=== PATIENT | female | born 1945 | race Caucasian/White ===

== ENCOUNTER → 2016-11-17 | Outpatient (CLI) | payer MEDICARE ==
[~2016-11-17] MED LIST: FLUT1DIS IH; LISI-334 PO
--- NOTE | 2016-11-17 12:08 | KCIC ---
PROCEDURE Two view chest radiograph. HISTORY Asthma. TECHNIQUE Two-view chest radiograph was obtained. COMPARISON None. FINDINGS The lungs are clear. There is no pleural effusion. Cardiopulmonary silhouette is within normal limits. Bony structures are intact. Anterior cervical fusion hardware is noted. IMPRESSION No acute thoracic findings. Electronically signed by: Joshua Pompa MD (Nov 17, 2016 12:06:50)
== END | disposition home or self-care (01) ==
LOC: KCIC 10:41
PROVIDERS: ATTEND Nurse Practitioner Family
DX: Z01.818 Encounter for other preprocedural examination (principal); Z86.79 Personal history of other diseases of the circulatory system
CPT/HCPCS: 71020

== ENCOUNTER → 2017-12-09 | Outpatient (CLI) | payer MEDICARE | END | disposition home or self-care (01) | LOC: KCIC MAMMO 10:24 | DX: Z12.31 Encounter for screening mammogram for malignant neoplasm of breast (principal) | CPT/HCPCS: 77063; 77067 ==

== ENCOUNTER → 2017-12-21 | Outpatient (CLI) | payer MEDICARE | END | disposition home or self-care (01) | LOC: US 09:35 | DX: N63.10 Unspecified lump in the right breast, unspecified quadrant (principal); Z80.3 Family history of malignant neoplasm of breast | CPT/HCPCS: 76641 ==

== ENCOUNTER → 2018-04-19 | Outpatient (CLI) | payer MEDICARE ==
--- NOTE | 2018-04-19 11:27 | KCIC ---
EXAMINATION: Magnetic resonance imaging (MRI) of the lumbar spine without contrast 04/19/2018 10:15 AM HISTORY: Lumbar radiculopathy. Pain extending into the left sacral and buttock lesion. TECHNIQUE: Multiplanar multi-weighted MRI of the lumbar spine was performed without intravenous contrast using the standard lumbar spine protocol. Contrast information: None administered. COMPARISON: MRI lumbar spine May 31, 2014 FINDINGS: There is levoconvex scoliosis of the lumbar spine with apex levocurvature at L4-L5. There is grade 1 retrolisthesis of L1 on L2. There is moderate to advanced disc height loss of L1-L2 with endplate remodeling and Modic type II endplate degenerative changes. Moderate anterior marginal osteophytosis is identified. The conus medullaris terminates at L1-L2. Distal spinal cord signal intensity is normal in all sequences. There is posterior and interbody fusion at L4-L5 with unilateral left-sided pedicle screws and single génesis. There is grade 1 anterolisthesis of L5 on S1. Vertebral body heights are maintained. Marrow signal intensity is otherwise normal in all sequences. Visualized portions of the sacrum appear intact. Visualized portions of the retroperitoneum appear normal. Abdominal aorta is normal in caliber as visualized. T12-L1: There is mild disc bulge. There is a right far lateral disc protrusion. There is no facet arthropathy. No neuroforaminal or spinal canal stenosis. L1-L2: There is a posterior disc osteophyte complex. There is moderate facet arthropathy. There is moderate to severe bilateral neuroforaminal stenosis. There is mild spinal canal stenosis. L2-L3: There is a circumferential disc bulge. There is moderate facet arthropathy. There is moderate to severe right and moderate left neuroforaminal stenosis. There is mild spinal canal stenosis. L3-L4: There is a circumferential disc bulge. There is moderate facet arthropathy with ligamentum flavum infolding. There is mild to moderate spinal canal stenosis. There is mild to moderate bilateral neuroforaminal stenosis. L4-L5: There is a mild disc bulge. There is severe facet arthropathy with facet fusion. There is moderate right and mild left neuroforaminal stenosis. No significant spinal canal stenosis. L5-S1: There is a circumferential disc bulge. There is severe facet arthropathy. There is severe bilateral neuroforaminal stenosis. No spinal canal stenosis. IMPRESSION: Postoperative changes from interbody and unilateral left posterior fusion at L4-L5 without significant interval change since prior examination. There is progression of grade 1 anterolisthesis of L5 on S1 with worsening degenerative changes at this level. There is worsening bilateral neuroforaminal stenosis at L5-S1. Moderate to advanced degenerative disc disease at L1-L2 appears similar. Findings at L3-L4 appears similar. Electronically signed by: Merry Hewitt MD (04/19/2018 11:23 AM) [facility]
== END | disposition home or self-care (01) ==
LOC: KCIC MRI 09:41
PROVIDERS: ATTEND Neurological Surgery
DX: M51.36 Other intervertebral disc degeneration, lumbar region (principal); M48.07 Spinal stenosis, lumbosacral region; M43.17 Spondylolisthesis, lumbosacral region; M48.061 Spinal stenosis, lumbar region without neurogenic claudication; M25.78 Osteophyte, vertebrae; Z98.890 Other specified postprocedural states; Z86.79 Personal history of other diseases of the circulatory system; Z80.3 Family history of malignant neoplasm of breast
CPT/HCPCS: 72148

== ENCOUNTER → 2018-05-13 | Outpatient (CLI) | payer MEDICARE ==
[~2018-05-13] MED LIST changes: +ASPI-612 PO; +HYDR50TA6 PO; +IOHEXOL 180 MG/ML 10 ML VIAL. ONE; +LIDOCAINE 2% PF 2ML VIAL. ONE; +LOSA100T7 PO; +MAGN500C10 PO; +MELO15TA23 PO; +MULT1TAB52 PO; +OMEG-165 PO; +POTA20TA82 PO; +PRAM0.255 PO; +RANI150T21 PO; +THEO600T PO; +methylPREDNISolone ACETATE 40 MG/ML VIAL. ONE; +methylPREDNISolone ACETATE 80 MG/ML VIAL. ONE
--- NOTE | 2018-05-14 04:06 | PAIN ---
DATE OF SERVICE: 05/13/2018 INITIAL CONSULTATION FOR PAIN CLINIC HISTORY OF PRESENT ILLNESS: This is a 73-year-old female who presents with history of pain in the low back, bilateral lower extremities, slightly worse on the left than the right but present bilaterally for about 3-4 months. No specific injury or action that she is aware of, just began worse with time, standing, walking especially and also sitting for prolonged periods and is awakening her from sleep about 4-5 times a night. The patient reports it does not affect her bowel or bladder control to significant amount but she does have some increased frequency but no incontinence. The patient reports it does affect her ability to walk significantly. She was holding on to the barrera and rails, but she is not using any assistive devices such as canes or walkers to ambulate. The patient reports the pain is across the low back into bilateral posterior gluteus, posterior thighs, posterior calves into the feet with some numbness and tingling as well, radiating pain. Describes as aching, burning across the low back, sometimes sharp, sometimes dull, worse with standing and walking. The patient did have a lumbar MRI scan, which shows postoperative changes at left L4-L5 with interbody unilateral left posterior fusion, progression of grade 1 anterolisthesis L5 on S1 with worsening degenerative change at this level with worsening bilateral neural foraminal stenosis at L5-S1 and moderate advanced degenerative disk disease at L1-L2 and L3-L4, same as her previous exam. The patient rates her disability rate from 0-10, 10 being the worst, is a 6 with family and home responsibilities and occupation, 5 with recreation, 3 with social activities, 7 with life support activities and 0 with self-care activities. The patient has not had any formal physical therapies recently but does do some stretching and strengthening exercises on her own but this has not been helping the pain significantly to reduce. The patient reports significant fatigability both lower extremities. No overt muscle weakness or loss but significant fatigability where she feels somewhat unstable in her legs at times. PAST MEDICAL HISTORY: Significant for hypertension and arthritis. PAST SURGICAL HISTORY: Previous surgeries include lumbar laminectomy in 2006 with fusion, hysterectomy, cervical laminectomy, right knee replaced in 2017, throat surgery in 2018, tonsillectomy as a child and tubal ligation many years ago. CURRENT MEDICATIONS: Include hydrochlorothiazide, losartan, Zantac, Mirapex, meloxicam, potassium chloride and daily baby aspirin, vitamins, theophylline, fish oil and magnesium. ALLERGIES: The patient is allergic to PENICILLIN and TETANUS. FAMILY HISTORY: Significant for no major medical problems or conditions she is aware of. SOCIAL HISTORY: The patient does not drink alcohol; does not smoke and does not use any illegal, illicit or recreational drugs. She is and lives locally in her own and reports she is currently retired. REVIEW OF SYSTEMS: The patient's review of systems is positive for those items mentioned in history of present illness. All systems reviewed and otherwise negative. It is complete, full and well documented on the patient's chart. PHYSICAL EXAMINATION: VITAL SIGNS: The patient's blood pressure is 194/84, pulse 77, respirations are 16, temperature is 98.2 degrees Fahrenheit, height is 66 inches and weighs 195 pounds. GENERAL: The patient is awake, alert, oriented, appropriate and very pleasant demeanor. HEENT: Head shows normocephalic and atraumatic. Extraocular movements are intact and symmetrical. Oral cavity: Mucous membranes moist and pink. Dentition is intact. NECK: Shows anterior throat supple without palpable lymphadenopathy noted. Swallow reflex symmetrical. CHEST: Shows normal on inspection. Breath sounds clear to auscultation bilaterally. HEART: Shows S1 and S2 clear. No murmurs auscultated. ABDOMEN: Soft, obese, nontender and nondistended. No palpable organomegaly is noted. No rebound or guarding demonstrated. BACK: Shows spine grossly in the midline. Normal appearing thoracic kyphosis with some slight exaggeration of the lumbar lordotic curvature, which is flattened. The patient shows a well-healed surgical scar in the midline of the lumbar spine. The patient's lumbar paraspinous musculature shows symmetrical on inspection, with palpation shows some moderate tenderness bilaterally but mostly in the middle and lower distribution of the paraspinous muscles without significant radiation. No trigger points. No radiation of pain. The patient has good rotational motion of the lumbar spine, both laterally greater than 10 degrees, right and left as well as extension greater than 10 degrees, forward flexion approximately 45 degrees without significant tenderness as well. No tenderness over the spinous processes, sacrum or sacroiliac regions. EXTREMITIES: The patient's lower extremities show deep tendon reflexes at 1+ in the patellar and tendo-calcaneus tendons. Motor exam is strong with 5/5 dorsiflexion, extension, quadriceps and hamstring flexion intact. Peripheral pulses are 1+ posterior tibia. No peripheral edema is noted. The patient's lower extremities are warm and dry to touch, equal in color and appearance. The patient's straight leg raising noted to be negative for reproduction of radicular symptoms bilaterally as is Gaenslen's and Remy's maneuvers are negative bilaterally as well. The patient is able to stand, is difficult to try to stand on her toes as she loses balance quickly, is walking with a slight shuffling gait, does not appear to favor the right or the left lower extremity significantly, not using any assistive devices to ambulate. IMPRESSION: 1. This is a 73-year-old female with about a 3-4 month history of increasing pain in the low back, bilateral lower extremities, slightly worse on the left than the right but present bilaterally in a radicular fashion. 2. Hypertension. 3. Arthritis. 4. MRI scan of lumbar spine as noted. PLAN: Options were discussed with the patient and the patient's daughter who accompanies her to visit today and we will proceed with a lumbar epidural steroid injection today. We discussed the procedure using description as well as anatomical models to describe the procedure. Risks were then discussed including, but not limited to bleeding, infection, possibility of epidural hematoma, subsequent neurological compromise, dural puncture, headaches, spinal cord and/or nerve damage, side effects of steroid medication and poor results regarding pain control. The patient understands and wished to proceed. The patient will return to the clinic in approximately 2 weeks for followup, was counseled as to return appointment, activity level and side effects to be aware of. 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 PROCEDURE: Lumbar epidural steroid injection, translaminar approach, L5-S1 level using C-arm fluoroscopic guidance under sterile prep and drape using local anesthetic. MEDICATION INJECTED: A total of 120 mg Depo-Medrol plus 10 mL of preservative-free normal saline and 2 mL of Isovue for contrast. CONDITION AT DISCHARGE: Stable. The patient tolerated the procedure well and had no complications. CAIT CASTILLO MD DR: DARIN/bulmaro JOB#: [id number] / [id number]
== END ==
LOC: PNCL 13:36
PROVIDERS: ATTEND Anesthesiology
DX: M51.16 Intervertebral disc disorders with radiculopathy, lumbar region (principal); M48.061 Spinal stenosis, lumbar region without neurogenic claudication; M96.1 Postlaminectomy syndrome, not elsewhere classified; I10 Essential (primary) hypertension; M19.90 Unspecified osteoarthritis, unspecified site; Z98.890 Other specified postprocedural states; Z90.710 Acquired absence of both cervix and uterus; Z96.651 Presence of right artificial knee joint; Z98.51 Tubal ligation status; Z79.82 Long term (current) use of aspirin; Z79.899 Other long term (current) drug therapy; Z88.0 Allergy status to penicillin; Z88.7 Allergy status to serum and vaccine
CPT/HCPCS: 62323; J1030; J1040; J2001; Q9965

== ENCOUNTER → 2018-05-27 | Outpatient (CLI) | payer MEDICARE ==
[~2018-05-27] MED LIST changes: +LIDOCAINE 1% PF 2 ML VIAL. ONE; -LIDOCAINE 2% PF 2ML VIAL. ONE
--- NOTE | 2018-05-28 02:33 | PAIN ---
DATE OF SERVICE: 05/27/2018 PROGRESS NOTE FOR PAIN CLINIC DIAGNOSES: Lumbar radiculopathy with lumbar spinal stenosis and post-lumbar laminectomy syndrome. HISTORY OF PRESENT ILLNESS: The patient is a 73-year-old female who returns for followup status post lumbar epidural steroid injection x 1. The patient reports about 20% improvement in her low back, bilateral lower extremity pain. The patient reports still significant pain across the low back and into the bilateral lower extremities, mostly in the posterior gluteus, posterior thighs and into the calves occasionally; worse with standing, walking and changing positions. The patient rates her pain as a 5 on a scale of 10 at all times, worst, average and at its least and is a 5 today. The patient reports it does not awaken her from sleep at night. She feels better with sitting or lying down. Reports the pain is tingling and tight across the back and shooting into the legs with a tingling sensation. The patient reports no new motor or sensory deficits and no new bowel or bladder incontinence or other complaints. PHYSICAL EXAMINATION: VITAL SIGNS: His blood pressure 160/78, pulse 66, respirations 18 and temperature is 98.0 degrees Fahrenheit. Height is 5 feet 3 inches and weight is 198 pounds. GENERAL: The patient is awake, alert, oriented, appropriate and very pleasant demeanor. HEENT: Head shows normocephalic and atraumatic. Extraocular movements are intact and symmetrical. Oral cavity: Mucous membranes moist and pink. Dentition is intact. NECK: Shows anterior throat supple without palpable lymphadenopathy noted. Swallow reflex is symmetrical. CHEST: Shows normal with inspection. Breath sounds are clear to auscultation bilaterally. HEART: Shows S1 and S2 clear. No murmurs auscultated. ABDOMEN: Soft, nontender and nondistended. No palpable organomegaly is noted. No rebound or guarding demonstrated. BACK: Shows spine grossly in the midline. Well healed surgical scars. No evidence of flattening of lumbar lordotic curvature. Lumbar paraspinous musculature shows symmetrical on inspection, on palpation shows some moderate tenderness but only diffusely in the lower lumbar distribution without atrophy or hypertrophy. The patient has good rotational motion with good rotation laterally as well as extension and flexion without exacerbation of pain. EXTREMITIES: Lower extremities show deep tendon reflexes 1+ in the patellar and tendo-calcaneus tendons. Motor exam is strong with 5/5 dorsiflexion, extension, quadriceps and hamstring flexion and symmetrical. Peripheral pulses are 1+ posterior tibia. No peripheral edema is noted bilaterally. Options were discussed with the patient. The patient's old chart was reviewed as well as her current medication regimen updated. Current review of systems updated today as well. We will proceed with a second in the series of lumbar epidural steroid injection today with fluoroscopic guidance. Risks were again discussed including, but not limited to bleeding, infection, possibility of epidural hematoma, subsequent neurologic compromise, dural puncture, headaches, spinal cord and/or nerve damage, side effects of steroid medication and poor results regarding pain control. The patient understands and wished to proceed. The patient will return to the clinic in approximately 2 weeks for followup, was counseled as to return appointment, activity level and side effects to be aware of. DIAGNOSES: Lumbar radiculopathy with lumbar spinal stenosis and post-lumbar laminectomy syndrome. PROCEDURE: Lumbar epidural steroid injection, translaminar approach, L5-S1 level using C-arm fluoroscopic guidance under sterile prep and drape using local anesthetic. MEDICATION INJECTED: A total of 120 mg Depo-Medrol plus 10 mL preservative-free normal saline and 2 mL of Isovue for contrast. CONDITION AT DISCHARGE: Stable. The patient tolerated the procedure well and had no complications. CAIT CASTILLO MD DR: DARIN/bulmaro JOB#: [id number] / [id number]
== END | disposition home or self-care (01) ==
LOC: PNCL 13:53
PROVIDERS: ATTEND Anesthesiology
DX: M48.061 Spinal stenosis, lumbar region without neurogenic claudication (principal); M54.16 Radiculopathy, lumbar region; M96.1 Postlaminectomy syndrome, not elsewhere classified; Z88.0 Allergy status to penicillin; Z88.7 Allergy status to serum and vaccine
CPT/HCPCS: 62323; J1030; J1040; Q9965

== ENCOUNTER → 2018-06-28 | Outpatient (CLI) | payer MEDICARE ==
[~2018-06-28] MED LIST changes: +DOCU-109 PO; -IOHEXOL 180 MG/ML 10 ML VIAL. ONE; -LIDOCAINE 1% PF 2 ML VIAL. ONE; +METH750T2 PO; +OXYC1TAB7 PO; +POTA10TA12 PO; -methylPREDNISolone ACETATE 40 MG/ML VIAL. ONE; -methylPREDNISolone ACETATE 80 MG/ML VIAL. ONE
[2018-06-28 14:19] LABS: BASO # 0.1 x10^3/uL (0.0-0.2); BASO % 1 % (0-3); EOS # 0.2 x10^3/uL (0.0-0.7); EOS % 2 % (0-3); HEMATOCRIT 39.2 % (36.0-47.0); HEMOGLOBIN 13.2 g/dL (12.0-15.5); LYMPH # 2.9 x10^3/uL (1.0-4.8); LYMPH % 24 % (24-48); MEAN CORPUSCULAR HEMOGLOBIN 29 pg (25-35); MEAN CORPUSCULAR HGB CONC 34 g/dL (31-37); MEAN CORPUSCULAR VOLUME 85 fL (79-100); MONO # 0.8 x10^3/uL (0.0-1.1); MONO % 7 % (0-9); NEUT # 8.1 x10^3uL (1.8-7.7); NEUT % 67 % (31-73); PLATELET COUNT 410 x10^3/uL (140-400); RED BLOOD COUNT 4.61 x10^6/uL (3.50-5.40); RED CELL DISTRIBUTION WIDTH 14.3 % (11.5-14.5); WHITE BLOOD COUNT 12.1 x10^3/uL (4.0-11.0)
[2018-06-28 14:32] LABS: PROTHROMBIN TIME PATIENT 12.2 SEC (11.7-14.0)
[2018-06-28 14:36] LABS: ALBUMIN 3.7 g/dL (3.4-5.0); ALBUMIN/GLOBULIN RATIO 0.8 (1.0-1.7); CALCIUM 9.9 mg/dL (8.5-10.1); GFR 54.5; POTASSIUM 3.6 mmol/L (3.5-5.1); TOTAL BILIRUBIN 0.3 mg/dL (0.2-1.0); TOTAL PROTEIN 8.4 g/dL (6.4-8.2)
== END | disposition home or self-care (01) ==
LOC: SURGPAT 13:09
PROVIDERS: ATTEND Neurological Surgery
DX: Z01.818 Encounter for other preprocedural examination (principal); M48.061 Spinal stenosis, lumbar region without neurogenic claudication; M54.16 Radiculopathy, lumbar region; M43.16 Spondylolisthesis, lumbar region
CPT/HCPCS: 36415; 80053; 85025; 85610; 85730; 87641

== ENCOUNTER → 2018-10-12 | Outpatient (CLI) | payer MEDICARE ==
[2018-07-06 11:36] VITALS: BP 107/49
[~2018-10-12] MED LIST changes: +LOSA100T14 PO; -LOSA100T7 PO; +RANI-376 PO; -RANI150T21 PO
--- NOTE | 2018-10-12 17:29 | KCIC ---
EXAM: AP, lateral and LS spot views of the lumbar spine DATE: 10/12/2018 12:00 AM INDICATION: Posterior spinal fusion COMPARISON: 10/12/2018 FINDINGS: Posterior spinal fusion at L5-S1 is seen. Grade 1 anterolisthesis of L5 on S1. In addition there is interbody fusion at L4-5. Leftward curvature of the lumbar spine apex L3-4. Moderate disc height loss T12-L1 and L1-L2. Small anterior endplate osteophytes are seen. Moderate facet degenerative changes at L4-5 and below. Decreased bone mineral density. IMPRESSION: 1. L5-S1 posterior spinal fusion, in good alignment without definite hardware complication. Grade 1 anterolisthesis L5 on S1. 2. L4-5 interbody fusion also in good alignment without definite hardware complication. 3. Multilevel degenerative changes as above. 4. No definite fracture is identified Electronically signed by: Jama Batista MD (10/12/2018 5:26 PM) [facility]
== END | disposition home or self-care (01) ==
LOC: KCIC 12:34
PROVIDERS: ATTEND Neurological Surgery
DX: Z47.89 Encounter for other orthopedic aftercare (principal); M43.17 Spondylolisthesis, lumbosacral region; M47.896 Other spondylosis, lumbar region; M25.78 Osteophyte, vertebrae; R29.890 Loss of height
CPT/HCPCS: 72100

== ENCOUNTER → 2018-11-04 | Outpatient (CLI) | payer MEDICARE ==
[2018-07-06 11:36] VITALS: BP 107/49
--- NOTE | 2018-11-04 15:10 | KCIC ---
Bilateral diagnostic digital mammograms with 3-D tomosynthesis: Reason for examination: Follow-up nodules. Comparison is made to previous studies dated 12/09/2017 and 10/04/2015. Bilateral mammograms in CC and oblique projections were obtained with 2-D imaging and 3-D tomosynthesis imaging on a Siemens Inspiration unit and reviewed on the workstation. Interpretation was made with the benefit of CAD. The skin and nipples show no abnormalities. No abnormal axillary lymph nodes are seen. The breast parenchyma shows scattered fatty and fibroglandular density. (Breast density: Category B.) There continues to be a nodular density at the 9:00 B position of the right breast which is unchanged. The nodular density in the 3:00 position of the left breast appears to have resolved. There are no new dominant masses, suspicious calcifications or architectural distortion. Impression: No definite change in the nodule at the 9:00 B position of the right breast. Interval improvement the nodule seen at the 3:00 position of the left breast. Ultrasound to follow. BI-RAD Category 0: Incomplete. Needs additional imaging evaluation. Bilateral breast ultrasound: Comparison is made to previous study dated 12/21/2017. Ultrasound examination was performed bilaterally in the areas of mammographic concern and at the axilla. In the right breast at the 9:00 position 3 cm from the nipple, there continues to be a small hypoechoic lesion measuring approximately 5.; mm in greatest dimension which is stable. Appearance is consistent with a small fibroadenoma. No other cystic or solid lesions are seen. No abnormal appearing lymph nodes are seen in the right axilla. In the 3:00 retroareolar position of the left breast, there is some ductal ectasia. The cystic appearing lesion previously seen in the 2:00 position has resolved. No new cystic or solid lesions are seen. No abnormal appearing lymph nodes are seen in the left axilla IMPRESSION: No change in the 5.6 mm hypoechoic lesion in the 9:00 B position of the right breast. No new suspicious lesion seen. Recommend 6 month sonographic follow-up of the right breast. BI-RADS Category 3: Probably Benign. "Our facility is accredited by the [employer] Mammography Program." This patient's information has been entered into a reminder system for the patient to be notified with the results of her examination and a target date for the next mammogram. Electronically signed by: Manju Maki MD (11/04/2018 3:07 PM) [id number]
== END | disposition home or self-care (01) ==
LOC: KCIC MAMMO 12:32
PROVIDERS: ATTEND Internal Medicine
DX: N63.23 Unspecified lump in the left breast, lower outer quadrant (principal); N63.11 Unspecified lump in the right breast, upper outer quadrant; N60.42 Mammary duct ectasia of left breast
CPT/HCPCS: 76641; 77066; G0279; 77062

== ENCOUNTER → 2019-03-24 | Outpatient (CLI) | payer MEDICARE ==
[2018-07-06 11:36] VITALS: BP 107/49
[~2019-03-24] MED LIST changes: +ALBUTEROL SULFATE 2.5 MG/3 ML NEBU. NEB ONE
--- NOTE | 2019-03-29 13:18 | RESP ---
DATE OF SERVICE: 03/24/2019 NAME OF STUDY: PFT. The patient's FVC was 1.89, which is 68% predicted, FEV1 1.12, which is 54% predicted. FEV1/FVC ratio was reduced. There was no significant change post-bronchodilators. Lung volume showed a total lung capacity of 209% predicted, residual volume 408% predicted. Diffusion capacity 134% predicted. IMPRESSION: 1. [id number] obstructive airway disease. 2. No response to bronchodilators. 3. Lung volumes consistent with air trapping and hyperinflation. 4. Increased diffusion capacity. LILLIAN BAINS MD DR: LO/bulmaro JOB#: [id number] / [id number] MARIAN Beltran MD
== END | disposition home or self-care (01) ==
LOC: PF 10:48
PROVIDERS: ATTEND Internal Medicine
DX: J44.9 Chronic obstructive pulmonary disease, unspecified (principal)
CPT/HCPCS: 94060; 94640; 94729; J7613

== ENCOUNTER → 2019-07-15 | Outpatient (CLI) | payer MEDICARE ==
[2018-07-06 11:36] VITALS: BP 107/49
[~2019-07-15] MED LIST changes: -ALBUTEROL SULFATE 2.5 MG/3 ML NEBU. NEB ONE; +POTA20TA4 PO; -POTA20TA82 PO
--- NOTE | 2019-07-16 10:23 | KCIC ---
Right breast ultrasound: Reason for examination: Follow-up nodules. Comparison is made to previous study dated 11/04/2018. Right breast ultrasound examination was performed including the right axilla. There continues to be a 6 mm hypoechoic nodule at the 9:00 position 3 cm from the nipple which shows no significant change. There are no new cystic or solid lesion seen. No abnormal appearing lymph nodes are seen in the axilla. IMPRESSION: No change in the right breast nodule at the 9:00 position. Recommend reevaluation in 6 months which can be performed at the time of bilateral mammograms. BI-RADS Category 3: Probably Benign. "Our facility is accredited by the [employer] Mammography Program." This patient's information has been entered into a reminder system for the patient to be notified with the results of her examination and a target date for the next mammogram. Electronically signed by: Manju Maki MD (07/16/2019 10:20 AM) [facility]
== END | disposition home or self-care (01) ==
LOC: KCIC US 12:54
PROVIDERS: ATTEND Nurse Practitioner Family
DX: N63.11 Unspecified lump in the right breast, upper outer quadrant (principal)
CPT/HCPCS: 76641

== ENCOUNTER → 2019-08-30 | Outpatient (CLI) | payer MEDICARE ==
[2018-07-06 11:36] VITALS: BP 107/49
--- NOTE | 2019-08-30 14:06 | KCIC ---
MRI of the cervical spine without contrast 08/30/2019 CLINICAL HISTORY: Neck pain with progressive left arm numbness. History of cervical fusion. TECHNIQUE: Unenhanced T1-weighted, T2-weighted and inversion recovery sagittal and gradient echo and T2-weighted axial images of the cervical spine were obtained. FINDINGS: Comparison study is dated 09/01/2007. Very mild lateral curvature of the cervical spine is seen convex to the right. There is straightening of the normal cervical lordosis. The patient is post anterior discectomy and fusion using an anterior plate, bone screws and bone graft material at C4-5 and C5-6. Degenerative signal changes and loss of height are seen involving the remaining discs of the cervical spine. Degenerative signal changes are seen within the marrow surrounding these discs. No area of abnormal signal intensity is seen involving the cervical spinal cord. At the C2-3 disc space there is a mild generalized disc bulge. Degenerative changes are seen involving the uncovertebral and facet joints bilaterally. These findings when combined do not result in significant central spinal canal or neural foraminal stenosis. At the C3-4 disc space there is a moderate generalized disc bulge. Degenerative changes are seen involving the uncovertebral and facet joints bilaterally. These findings result in moderate central spinal canal stenosis with mild cord impingement. This is new since the previous study. Mild to moderate bilateral neural foraminal stenosis is seen. At the C4-5 disc space degenerative changes are seen involving the uncovertebral and facet joints bilaterally. The central spinal canal stenosis and cord impingement seen on the previous study has resolved with the discectomy and fusion. No neural foraminal stenosis is seen. At the C5-6 level degenerative changes are seen involving the uncovertebral and facet joints, left greater than right. These findings do not result in significant central spinal canal stenosis. Mild to moderate left neural foraminal stenosis is seen. The right neural foramen is patent. At the C6-7 disc space there is a mild generalized disc bulge. This is eccentric to the left. Degenerative changes are seen involving the uncovertebral and facet joints, left greater than right. These findings do not result in significant central spinal canal stenosis. Mild to moderate left neural foraminal stenosis is seen. The right neural foramen is patent. At the C7-T1 disc space there is a minimal generalized disc bulge. Degenerative changes are seen involving the facet joints bilaterally. These findings do not result in central spinal canal or neural foraminal stenosis. IMPRESSION: 1. Post anterior discectomy and fusion at C4-5 and C5-6. 2. Degenerative changes are seen throughout the cervical spine. These findings results in moderate central spinal canal stenosis with mild cord impingement at C3-4. Mild to moderate bilateral neural foraminal stenosis is seen at C3-4. Mild to moderate left neural foraminal stenosis is seen at C5-6 and C6-7. Electronically signed by: Elias Man MD (08/30/2019 2:03 PM) [facility]
== END | disposition home or self-care (01) ==
LOC: KCIC MRI 12:03
PROVIDERS: ATTEND Internal Medicine
DX: M50.23 Other cervical disc displacement, cervicothoracic region (principal); M48.02 Spinal stenosis, cervical region
CPT/HCPCS: 72141

== ENCOUNTER 2020-12-21 10:11 | Emergency (ER) | payer MEDICARE ==
[~2020-12-21] VITALS: Ht 158.8 cm; Wt 90.0 kg
[~2020-12-21 10:11] MED LIST changes: -ASPI-612 PO; +ASPI-886 PO; -HYDR50TA6 PO; +HYDR50TA9 PO; -LISI-334 PO; +LISI20TA18 PO; +METH-562 PO; -METH750T2 PO; +MULT-445 PO; -MULT1TAB52 PO; -THEO600T PO; +THEO600T4 PO
--- NOTE | 2020-12-21 11:56 | RAD ---
INDICATION: Reason: pain in leg eval for DVT / Spl. Instructions: / History: COMPARISON: None. TECHNIQUE: Grayscale, color and doppler ultrasound images were obtained of the left lower extremity v enous vasculature. LEFT: No thrombus identified in the common femoral vein, femoral vein, popliteal vein or visualized calf ve ins. IMPRESSION: * No thrombus identified in deep venous system of the left lower extremity. Electronically signed by: Jeffy Carrion MD (12/21/2020 11:53 AM) [id number]
--- NOTE | 2020-12-21 12:11 | PHYS DOC ---
Past Medical History Past Medical History: CHF, DVT, GERD, Hypertension Additional Past Medical Histor: lymphedema; back pain; chronic pain; femoral stents Past Surgical History: Tonsillectomy, Other Additional Past Surgical Histo: back; right knee; neck Smoking Status: Never Smoker Alcohol Use: Rarely General Adult EDM: Chief Complaint: LOWER EXT PAIN HPI: HPI: Patient is a 75 year old [f__sex] who presents with [] Review of Systems: Review of Systems: Constitutional: Denies fever or chills Eyes: Denies redness or eye pain HENT: Denies nasal congestion or sore throat Respiratory: Denies cough or shortness of breath Cardiovascular: Denies chest pain or palpitations GI: Denies abdominal pain, nausea, or vomiting : Denies dysuria or hematuria Musculoskeletal: Denies back pain or joint pain Integument: Denies rash or skin lesions Neurologic: Denies headache, focal weakness or sensory changes Complete systems were reviewed and found to be within normal limits, except as documented in this note. Heart Score: C/O Chest Pain: N/A Allergies: Allergies: Allergies Coded Allergies Type Severity Reaction Last Updated Verified Penicillins Allergy Intermediate 07/05/18 Yes Tetanus Vaccines and Toxoid Allergy Intermediate 07/05/18 Yes Physical Exam: PE: Constitutional: Well developed, well nourished, no acute distress, non-toxic appearance HENT: Normocephalic, atraumatic Eyes: PERRL, EOMI, conjunctiva normal, no discharge Neck: Normal range of motion, no tenderness, supple Lungs & Thorax: No respiratory distress, equal chest rise and fall Abdomen: Soft, no tenderness Skin: Warm, dry, no erythema, no rash Back: No tenderness, no CVA tenderness Extremities: No tenderness, ROM intact, no edema Neurologic: Alert and oriented X 3, normal motor function, normal sensory function, no focal deficits noted Psychologic: Affect normal, judgment normal Current Patient Data: Vital Signs: Vital Signs Date Time Temp Pulse Resp B/P (MAP) Pulse Ox O2 Delivery O2 Flow Rate FiO2 12/21/20 10:30 98.0 82 16 200/84 (122) 99 Room Air 98.0 EKG: EKG: [] Radiology/Procedures: Radiology/Procedures: PROCEDURE: VENOUS LOWER EXTREMITY LEFT INDICATION: Reason: pain in leg eval for DVT / Spl. Instructions: / History: COMPARISON: None. TECHNIQUE: Grayscale, color and doppler ultrasound images were obtained of the left lower extremity venous vasculature. LEFT: No thrombus identified in the common femoral vein, femoral vein, popliteal vein or visualized calf veins. IMPRESSION: * No thrombus identified in deep venous system of the left lower extremity. Electronically signed by: Jeffy Carrion MD (12/21/2020 11:53 AM) DESKTOP- [id number] Course & Med Decision Making: Course & Med Decision Making Pertinent Imaging studies reviewed. (See chart for details) Dr. Frazier (orthopedics) presented to the ER and evaluated patient with recommendation to follow with ankle and software applications specialist. Dr. Frazier also in agreement with walking boot and use of walker. Patient stable for discharge with outpatient follow-up with PCP/orthopedics. Discussed findings and plan with patient and family, who acknowledge understanding and agreement. Dragon Disclaimer: Dragon Disclaimer: This electronic medical record was generated, in whole or in part, using a voice recognition dictation system. Splinting Splinting : Location: Left ankle Pre-Made Type: Walking boot Pre-Proc Neuro Vasc Exam: normal Post-Proc Neuro Vasc Exam: normal, unchanged from pre-exam Departure Departure Impression: Primary Impression: Ankle pain Qualified Codes: M25.572 - Pain in left ankle and joints of left foot Additional Impression: Arthritis Disposition: 01 HOME / SELF CARE / HOMELESS Condition: STABLE Referrals: MARIAN LAUGHLIN MD (PCP) CIARRA FRAZIER MD Patient Instructions: Ankle Pain, Arthritis, Nonspecific, [id number] Additional Instructions: Ice area 20 minutes on then leave off next 20 minutes. Wear walking boot for protection of joint. Use walker with ambulation. ARNIE POND DO December 21, 2020 12:11
--- NOTE | 2020-12-21 12:29 | RAD ---
THREE-VIEW LEFT ANKLE STUDY Clinical indications: Left ankle pain and swelling FINDINGS: Lateral soft tissue swelling is seen. No acute fracture or dislocation or lytic process is seen. Accessory ossification centers of the medial malleolus are seen. There is irregularity of the l ateral dome of the talus. This could be due to an osteochondral lesion. There is mild degenerative sp urring of the tibiotalar joint compartment. IMPRESSION: No acute fracture. Lateral soft tissue swelling. 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 There is also mild subchondral lucency of the medial dome of the talus. Another osteoc hondral lesion may be present here as well. This may be further evaluated with MRI imaging if clinica lly needed. THREE-VIEW LEFT FOOT STUDY Clinical indications: Left foot pain and swelling. FINDINGS: No acute fracture or dislocation or lytic process is seen. Moderate-sized plantar spur of t he calcaneus is seen. Accessory ossification center of the dorsal distal navicular bone is seen. Ther e is moderate dorsal degenerative spurring of the first tarsal metatarsal joint. No erosive arthropat hy is seen. IMPRESSION: No acute fracture. Electronically signed by: Long Alford MD (12/21/2020 12:27 PM) [id number]
[2020-12-21 13:30] VITALS: BP 132/89
== END 2020-12-21 13:40 | disposition home or self-care (01) ==
LOC: ER 10:11
DX: M25.572 Pain in left ankle and joints of left foot (principal); M19.072 Primary osteoarthritis, left ankle and foot; I11.0 Hypertensive heart disease with heart failure; I50.9 Heart failure, unspecified; K21.9 Gastro-esophageal reflux disease without esophagitis; G89.29 Other chronic pain; Z86.718 Personal history of other venous thrombosis and embolism; Z95.5 Presence of coronary angioplasty implant and graft; Z88.0 Allergy status to penicillin; Z88.7 Allergy status to serum and vaccine
CPT/HCPCS: 73610; 73630; 93971; 99284-25

== ENCOUNTER → 2021-02-06 | Outpatient (CLI) | payer MEDICARE ==
--- NOTE | 2021-02-06 11:38 | KCIC ---
EXAM: Pelvis and right hip, 3 views; lumbar spine, 3 views. HISTORY: Pain. COMPARISON: None. FINDINGS: Pelvis and right hip: A frontal view of the pelvis and frontal and frog-leg views of the right hip ar e obtained. There is no fracture, dislocation or subluxation. There are bilateral common iliac stents . There is instrumented fusion at the lumbosacral junction. There is a bump at the right femoral head -neck junction likely due to chronic hip impingement. Lumbar spine: 3 views of the lumbar spine are obtained. There is instrumented posterior spinal fusion and laminectomy decompression at L5-S1. There is a disc space fusion device at L4-L5. There is grade 1 anterolisthesis of L5 on S1, measuring 5 mm. There is grade 1 anterolisthesis of L4 and L5, measur ing 2 mm. There is 3 mm retrolisthesis of L1 on L2 and L2 on L3. There is degenerative endplate remod eling with disc space narrowing and osteophytosis primarily at L1-L2 and L5-S1. There is multilevel f acet arthropathy. There are common iliac artery stents. There is mild scoliosis. IMPRESSION: 1. Multilevel degenerative change throughout the lumbar spine, primarily at L1-L2 and the lumbosacral junction. 2. Instrumented posterior spinal fusion at L5-S1 and disc space fusion device placement at L4-L5. 3. Lumbar scoliosis and multilevel listhesis. 4. Findings suggesting a component of chronic right hip impingement. There is no acute osseous findin g. Electronically signed by: Berna Rucker MD (02/06/2021 11:36 AM) [id number]
== END ==
LOC: KCIC 11:01
PROVIDERS: ATTEND Nurse Practitioner Family
DX: M47.817 Spondylosis without myelopathy or radiculopathy, lumbosacral region (principal); M43.17 Spondylolisthesis, lumbosacral region; M48.07 Spinal stenosis, lumbosacral region; M25.78 Osteophyte, vertebrae; M41.86 Other forms of scoliosis, lumbar region; M25.551 Pain in right hip
CPT/HCPCS: 72100; 73502

== ENCOUNTER → 2021-02-21 | Outpatient (CLI) | payer MEDICARE ==
--- NOTE | 2021-02-21 16:22 | KCIC ---
Study: MRI of the right hip without contrast INDICATION: Right hip pain. Recent fall. COMPARISON: Right hip radiographs 02/06/2021 TECHNIQUE: Multiplanar MR imaging of the right hip performed without the use of intravenous or intra- articular contrast. FINDINGS: Bones/hip: No acute fracture seen throughout the partially imaged pelvis. No stress reaction or avasc ular necrosis at either hip. Marrow signal is heterogeneous but without aggressive features. Labrum/cartilage: Not unexpected for patient age is degenerative heterogeneity of the labrum best afshan reciated anterior/superior. No well delineated full-thickness chondral defect. Ligamentum teres: Heterogeneous but appears to be intact. Greater trochanteric bursa: Unremarkable bursa on the right. Trace fluid and some edema-like signal a long the bursa on the left but not to the extent typical of bursitis. Musculotendinous: No acute tendon tear no advanced tendinosis. No localized muscular edema around the right hip. Miscellaneous: Unremarkable sciatic nerve bundle on the right. Within normal limits ischiofemoral spa ce. IMPRESSION: 1. No acute osseous or soft tissue abnormality at the right hip in the setting of a recent fall. 2. Degenerative changes at the right hip are mild and not beyond what would be expected given patien t age. Electronically signed by: MELO MAJANO MD (02/21/2021 4:19 PM) [id number]
--- NOTE | 2021-02-21 17:11 | KCIC ---
EXAM: Lumbar spine MRI without contrast. HISTORY: Lower back pain. Fall. TECHNIQUE: Multiplanar, multisequence magnetic resonance imaging of the lumbar spine was performed wi thout contrast. COMPARISON: CT dated 07/05/2018. MRI dated 04/19/2018. FINDINGS: There is mild lumbar levoscoliosis and hyperlordosis. There is 4 mm retrolisthesis of L1 on L2 and L2 on L3. There is 4 mm grade 1 anterolisthesis of L4 and L5 and L5 and S1. There is instrume nted posterior spinal fusion and laminotomy decompression at L5-S1. There is a disc space fusion peyton ce and laminotomy decompression at L4-L5. The conus terminates at L2. There is multilevel endplate remodeling with disc space narrowing, osteophytosis and Schmorl's node f ormation. There is no acute or subacute fracture. There is no suspicious osseous lesion. There is a 1 .3 cm left adrenal nodule. At L1-L2, there is a diffuse disc bulge and endplate osteophytosis. There is moderate bilateral facet arthropathy. There is hypertrophy of the ligamentum flavum. There is retrolisthesis. There is modera te right and severe left foraminal stenosis. There is mild central canal stenosis. At L2-L3, there is a broad-based right paracentral to lateral recess disc protrusion with large extru margot extending 1.6 cm superior to the disc space and nearly abutting the adjacent L1-L2 disc space. T his is superimposed on a disc bulge and endplate osteophytosis. There is severe bilateral facet arthr opathy. There is prominent dorsal epidural fat. There is hypertrophy of the ligamentum flavum. There is retrolisthesis. There is severe right and moderate left foraminal stenosis. There is severe centra l canal stenosis. At L3-L4, there is a disc bulge and endplate osteophytosis. There is moderate bilateral facet arthrop athy. There is hypertrophy of the ligamentum flavum. There is mild left foraminal stenosis. There is moderate central canal stenosis. At L4-L5, there is a disc space fusion device. There is moderate facet arthropathy. There is laminoto my decompression. There is grade 1 anterolisthesis. There is no stenosis. At L5-S1, there is instrumented posterior spinal fusion. There is a diffuse disc bulge and endplate o steophytosis. There is severe bilateral facet arthropathy. There is grade 1 anterolisthesis. There is moderate right and severe left foraminal stenosis. 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 IMPRESSION: 1. Multilevel degenerative change throughout the lumbar spine, described in detail above. This is ass ociated with moderate right and severe left foraminal and mild central canal stenosis at L1-L2, sever e right and moderate left foraminal and severe central canal stenosis at L2-L3, mild left foraminal a nd moderate central canal stenosis at L3-L4, and moderate right and severe left foraminal stenosis at L5-S1. These findings have increased at L2-L3 compared to the prior study, likely a new large superi or disc extrusion at this level. The degenerative changes are stable to minimally increased at the re mainder the lumbar levels compared to the prior MRI. 2. Instrumented posterior spinal fusion at L5-S1, disc space fusion device placement at L4-5 and lami nectomy decompression at L4-L5 and L5-S1. 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 This is n ew compared to the prior MRI. There has been interval removal of transpedicular screws at L4 and plac ement of screws at S1. 3. Multilevel listhesis and lumbar scoliosis. Electronically signed by: Berna Rucker MD (02/21/2021 5:09 PM) [id number]
== END ==
LOC: KCIC MRI 12:19
PROVIDERS: ATTEND Nurse Practitioner Family
DX: M47.817 Spondylosis without myelopathy or radiculopathy, lumbosacral region (principal); M48.07 Spinal stenosis, lumbosacral region; M43.17 Spondylolisthesis, lumbosacral region; M16.11 Unilateral primary osteoarthritis, right hip; M41.86 Other forms of scoliosis, lumbar region; M51.46 Schmorl's nodes, lumbar region
CPT/HCPCS: 72148; 73721

== ENCOUNTER 2021-03-05 06:11 | Emergency (ER) | payer MEDICARE | END 2021-03-05 08:24 | disposition left against medical advice (07) | LOC: ER 06:11 | DX: M51.26 Other intervertebral disc displacement, lumbar region (principal); Z53.21 Procedure and treatment not carried out due to patient leaving prior to being seen by health care provider ==

== ENCOUNTER → 2021-03-18 | Outpatient (CLI) | payer MEDICARE ==
[~2021-03-18] MED LIST changes: +ALBU2.5V8 IH; +AMLO-187 PO; +CALC-71 PO; +CHOL5000 PO; +EZET10TA20 PO; +FLUT1DIS3 IH; +HYDR-2765 PO; +LOSA1TAB22 PO; +MONT10TA49 PO; +RIVA10TA PO
[2021-03-18 14:15] LABS: BASO # 0.1 x10^3/uL (0.0-0.2); BASO % 1 % (0-3); EOS % 0 % (0-3); HEMATOCRIT 31.2 % (36.0-47.0); HEMOGLOBIN 10.7 g/dL (12.0-15.5); LYMPH # 0.7 x10^3/uL (1.0-4.8); LYMPH % 8 % (24-48); MEAN CORPUSCULAR HEMOGLOBIN 28 pg (25-35); MEAN CORPUSCULAR HGB CONC 34 g/dL (31-37); MEAN CORPUSCULAR VOLUME 81 fL (79-100); MONO # 0.5 x10^3/uL (0.0-1.1); MONO % 5 % (0-9); NEUT # 8.4 x10^3/uL (1.8-7.7); NEUT % 86 % (31-73); PLATELET COUNT 299 x10^3/uL (140-400); RED BLOOD COUNT 3.86 x10^6/uL (3.50-5.40); RED CELL DISTRIBUTION WIDTH 15.2 % (11.5-14.5); WHITE BLOOD COUNT 9.7 x10^3/uL (4.0-11.0)
[2021-03-18 14:46] LABS: % BANDS 2 % (0-9); % BASOS 1 % (0-3); % EOS 1 % (0-5); % LYMPHS 10 % (24-48); % MONOS 3 % (0-10); % SEGS 83 % (35-66); PLT ESTIMATE ADEQUATE (ADEQUATE)
[2021-03-18 15:01] LABS: ALBUMIN 3.5 g/dL (3.4-5.0); ALBUMIN/GLOBULIN RATIO 0.9 (1.0-1.7); CALCIUM 10.1 mg/dL (8.5-10.1); CREATININE 0.9 mg/dL (0.6-1.0); POTASSIUM 3.3 mmol/L (3.5-5.1); TOTAL BILIRUBIN 0.4 mg/dL (0.2-1.0); TOTAL PROTEIN 7.4 g/dL (6.4-8.2)
--- NOTE | 2021-03-20 10:20 | NUR ---
Faxed pretesting results to Dr Nicolas's office with attention to abnormals. Also, left a message with Dr Riley' office to check if her low sodium is new or chronic.
--- NOTE | 2021-03-20 11:16 | NUR ---
Dr Camarillo reviewed labs. No further orders.
== END ==
LOC: SURGPAT 13:25
PROVIDERS: ATTEND Neurological Surgery
DX: Z01.818 Encounter for other preprocedural examination (principal); M51.16 Intervertebral disc disorders with radiculopathy, lumbar region
CPT/HCPCS: 36415; 80053; 85007; 85025; 87641

== ENCOUNTER 2021-03-22 06:37 | Day surgery (SDC) | payer MEDICARE ==
[2021-03-18 15:00] VITALS: BP 176/67
[~2021-03-22] VITALS: Ht 160 cm; Wt 89.0 kg
[~2021-03-22 06:37] MED LIST changes: +DEXAMETHASONE SOD PHOS 4 MG/ML VIAL ONE; +HYDROmorphone 2 MG/ML VIAL IVP PRN; +IV RINGERS,LACTATED 1000ML 1,000 ML IV SCH; +LIDOCAINE 2% PF 5 ML VIAL. ONE; +MORPHINE SULFATE 2 MG/ML INJ. IVP PRN; +ONDANSETRON PF 4 MG/2 ML VIAL. ONE; +PHENYLEPHRINE in 0.9% NACL PF 1 MG/10 ML SYRINGE. IV ONE; +PROCHLORPERAZINE 10 MG/2 ML VIAL. IVP PRN; +PROPOFOL 10 MG/ML (20ML) VIAL. IV ONE; +PROPOFOL 50 ML IV ONE; +REMIFENTANIL 2 MG VIAL. IV ONE; +ROCURONIUM 50 MG/5 ML VIAL. ONE; +VANCOMYCIN 1GM IVPB FOR OMNI 250 ML IV PRN; +ceFAZolin SODIUM 1 GM in IV NORMAL SALINE 1000ML BAG 1,000 ML IRR ONE; +fentaNYL PF VIAL 100 MCG/2 ML VIAL IVP PRN
[2021-03-22 07:12] VITALS: BP 177/81
[2021-03-22] MEDS ORDERED: PHENYLEPHRINE 10 MG/ML VIAL. ONE (07:21)
[2021-03-22 07:53] LABS: CALCIUM 9.6 mg/dL (8.5-10.1); GFR 54.1; POTASSIUM 3.6 mmol/L (3.5-5.1)
[2021-03-22] MEDS ORDERED: GELATIN SPONGE SIZE 100. ONE (08:52)
[2021-03-22] MEDS ORDERED: BUPIVACAINE-EPI 0.5%-1:200000 MPF 30 ML VIAL. ONE (08:52)
[2021-03-22] MEDS ORDERED: KETOROLAC 60 MG/2 ML VIAL. ONE (08:52)
[2021-03-22] MEDS ORDERED: THROMBIN TOPICAL 20,000 UNIT SPRAY.SYRN KIT TP ONE (08:52)
--- NOTE | 2021-03-22 08:53 | PREOP HP ---
DATE OF SERVICE: 03/22/2021 PREOPERATIVE HISTORY AND PHYSICAL HISTORY OF PRESENT ILLNESS: The patient is a pleasant 76-year-old who 6 weeks ago fell and developed severe pain in the right side of her back radiating to her right anterior thigh. She says that the pain is constant. It can reach 10/10. She has difficulty sleeping at night. She says she has no time where there is not significant pain. She has been taking Percocet and anti-inflammatory medications as well as a Medrol Dosepak, which have not given her significant lasting relief. She says that she has been using a walker ever since this problem began. She has numbness in the right anterior thigh. She has not noticed significant weakness. CURRENT MEDICATIONS: Singulair, hydrochlorothiazide, allopurinol, hydroxyzine, vitamin D3, calcium, Super B Complex, Lasix, Lyrica, Xarelto, Advair, amlodipine, meloxicam, losartan, potassium, vitamin B12, lisinopril, vitamin C. PAST MEDICAL HISTORY: Asthma, arthritis and hypertension. SURGICAL HISTORY: Hysterectomy; lumbar fusion of L4-L5 in 2006; ACDF, C4-C5, C5-C6 in 2007; right knee surgery in 2016; removal of hardware L4-L5; placement of hardware L5-S1 with decompression L5-S1, left in 06/2018. FAMILY HISTORY: Cancer, heart disease, hypertension. SOCIAL HISTORY: Retired, , nonsmoker. Drinks alcohol 1-2 times per year. ALLERGIES: TETANUS AND PENICILLIN. REVIEW OF SYSTEMS: A 12-point review of systems was performed and is noncontributory except that mentioned above. PHYSICAL EXAMINATION: GENERAL: Alert, pleasant. HEENT: Head: Normocephalic, atraumatic. SKIN: Warm and dry. BACK: Well-healed lumbar incision. MUSCULOSKELETAL: Lumbar paraspinal muscle bulk is normal, restricted range of motion of the lumbar spine, [id number] tenderness of the lower lumbar spine with palpation, normal range of motion of the lower extremities bilaterally. EXTREMITIES: No clubbing, cyanosis or edema. NEUROLOGIC: Strength is 5/5 in bilateral lower extremities. Sensory testing has decreased light touch involving the right anterior thigh. Reflexes were asymmetric with an absent right knee jerk. Straight leg raising was negative. She had difficulty ambulating because of right leg pain and used a walker. IMAGING: I reviewed a lumbar MRI scan. On that study, there was a large right paracentral lateral recess disk protrusion with an extrusion extending 1.6 cm superior to the disk space. There is severe right and moderate left neural foraminal narrowing. There is moderate right-sided canal stenosis associated with this. ASSESSMENT AND PLAN: I spoke with her about treatment options. She says the pain is so severe that she strongly wants the disk to be removed with surgery. She has no interest in epidural steroids or physical therapy. We spoke about the risk of surgery and the expected postoperative course. She understands and would like to proceed. We are going to make arrangements. SUMMER DR: Dahiana TID: [id number]
[2021-03-22] MEDS ORDERED: MIDAZOLAM HCL/PF 2 MG/2 ML VIAL. ONE (08:58)
[2021-03-22] MEDS ORDERED: fentaNYL PF VIAL 100 MCG/2 ML VIAL ONE ×2 (08:58→12:57)
[2021-03-22] MEDS ORDERED: GLYCOPYRROLATE 1 MG/5 ML VIAL. ONE (09:42)
[2021-03-22] MEDS ORDERED: KETAMINE HCL IN NACL, ISO-OSM 50 MG/5 ML SYRINGE ONE (10:32)
[2021-03-22] MEDS ORDERED: ePHEDrine PF IN SALINE 50 MG/10 ML SYRINGE. IV ONE (11:12)
[2021-03-22] MEDS ORDERED: NEOSTIGMINE METHYLSULFATE 5 MG/5 ML SYRINGE. ONE (11:49)
[2021-03-22] MEDS ORDERED: SEVOFLURANE 61 TO 120 MINUTES. IH ONE (11:58)
[2021-03-22] MEDS ORDERED: DOCU-109 PO (12:20)
--- NOTE | 2021-03-22 12:21 | DISCH ---
DISCHARGE INSTRUCTIONS Condition on Discharge Condition on Discharge: Stable Activity After Discharge Activity Instructions for Disc: Resume previous activity, Activity as hanh ated, Walk in house Bathing Instructions: Shower-keep dressing dry, No Tub Bath until see Lifting Instructions after Dis: No heavy lifting, No pulling or pushing, Do not lift >10 pounds Exercise Instruction after Dis: Progress as tolerated Driving Instructions after Dis: No driving for 2 weeks Weight Bearing Status after Di: No restrictions, Full weight bearing, As tolerated Diet after Discharge Diet after Discharge: Regular Additional Diet Restrictions: resume home diet Diet Texture: Regular Liquid Texture: Thin Liquid Swallowing Supervision: None needed Wound Incision Care Wound/Incision Care: Ice to area for comfort, Keep wound/cast CDI Other wound/incision instructi: may remove dressing in 48 hours if dry, no soaking Wound Care Equipment: Dressings Contacting the DRKacey after DC Call your doctor for: Concerns you may have Follow-Up Follow up with: Dr. Westfall in 2 weeks [phone] Treatment/Equipment after DC Adaptive Equipment Issued: Brace/splint HAZLE WESTFALL MD Mar 22, 2021 12:21
--- NOTE | 2021-03-22 12:29 | RAD ---
EXAM: Procedural fluoroscopy, lumbar spine. HISTORY: Lumbar microdiscectomy. FINDINGS: 3 fluoroscopic images of the lumbar spine are obtained. Fluoroscopy time 0.1 minutes. These demonstrate operative changes posteriorly at L2-3. Lumbar fusion is noted at L5-S1. Refer to the operative report for full detail. Electronically signed by: Zenaida Antonio MD (03/22/2021 12:26 PM) [id number]
--- NOTE | 2021-03-22 12:31 | OP ---
DATE OF SURGERY: 03/22/2021 PREOPERATIVE DIAGNOSIS: Herniated lumbar disk, L2-3 right with superior large inferior fragment. POSTOPERATIVE DIAGNOSIS: Herniated lumbar disk, L2-3 right with superior large inferior fragment. OPERATION PERFORMED: Hemilaminotomy, microdiskectomy, L2-3, right. The operation was done with EMG monitoring, SSEP monitoring, fluoroscopy. FLOOR LAYER APPRENTICE: MISHA Guy, assisted with the exposure, the microdiskectomy as well as the closure. OPERATIVE INDICATIONS: The patient is a pleasant 76-year-old who developed severe intractable back and right greater than left leg pain and was found to have a new herniated disk at L2-3, which extended from the right side superiorly. After failing conservative measures, I recommended lumbar microsurgery. I spoke with her about the surgery, the risks, technique and expected postoperative course, and she wished to go ahead. DESCRIPTION OF PROCEDURE: Following general endotracheal anesthesia, the patient was positioned prone on the Dheeraj table. Lumbar region prepped and draped in standard fashion. SARAVANAN hose and AV impulse boots were applied for DVT prophylaxis. A microscope was draped, fluoroscopy was draped and brought into field. Monitoring was established. Vancomycin 1 gram was given prior to the surgery. Using fluoroscopic guidance, incision was made over the L2-3 interspace. It was taken down through subcutaneous tissue and reflected the paraspinal muscles of the right and placed a [place] microdisk retractor, brought in the microscope and the remainder of the surgery done with the microscope using microscopic technique. I used the high speed air drill to last a very generous hemilaminotomy, trimmed away ligamentum flavum, exposing the dura and the exiting L3 root. I did perform a partial foraminotomy. I then thinned the bone superiorly and worked superiorly, carrying the laminotomy to the mid portion of the pedicle of L2. I gently retracted the dura medially. There was considerable scarring anteriorly and I worked to free this up and then began in a piecemeal fashion to remove multiple large disk fragments. As I worked, I was able to fully decompress the entire region. Using 11 blade, incised the annulus at the level of the disk and used micropituitary to remove disk for a microdiskectomy. As I worked, the entire area became very well decompressed. I irrigated copiously with antibiotic solution. I assured myself that the roots were free. There were no retained fragments. I then obtained hemostasis and I closed the wound in layers of absorbable sutures. Skin was closed with 4-0 subcuticular stitch. I felt the surgery went very well. NAKIA DR: Pablito TID: [id number]
[2021-03-22] MEDS: fentaNYL PF VIAL 100 MCG/2 ML VIAL IVP PRN ×2 (13:01→13:58)
[2021-03-22] MEDS ORDERED: HYDROcodone/APAP 7.5/325MG 1 TAB TABLET PO PRN (13:15)
[2021-03-22 13:26] VITALS: BP 114/57
[2021-03-22] MEDS ORDERED: HYDROmorphone 2 MG/ML VIAL ONE (14:06)
== END 2021-03-22 14:50 | disposition home or self-care (01) ==
LOC: SURG 06:37
PROVIDERS: ATTEND Neurological Surgery
DX: M51.26 Other intervertebral disc displacement, lumbar region (principal); I10 Essential (primary) hypertension; J45.909 Unspecified asthma, uncomplicated; M19.90 Unspecified osteoarthritis, unspecified site; Z88.0 Allergy status to penicillin; Z79.899 Other long term (current) drug therapy; Z88.7 Allergy status to serum and vaccine; Z90.710 Acquired absence of both cervix and uterus; Z98.890 Other specified postprocedural states
CPT/HCPCS: 36415; 63030; 76000; 80048; 97116; 97162; 97530; A4364; A4930; A6254; A6258; J0690; J1100; J1170; J1885; J2370; J2405; J2704; J2710; J3010; J3370; J3490; J7030; A4222; J2250

== ENCOUNTER 2021-04-04 10:24 | Emergency (ER) | payer MEDICARE ==
[~2021-04-04] VITALS: Ht 160 cm; Wt 75.0 kg
[~2021-04-04 10:24] MED LIST changes: -DEXAMETHASONE SOD PHOS 4 MG/ML VIAL ONE; -HYDROmorphone 2 MG/ML VIAL IVP PRN; -IV RINGERS,LACTATED 1000ML 1,000 ML IV SCH; -LIDOCAINE 2% PF 5 ML VIAL. ONE; -MORPHINE SULFATE 2 MG/ML INJ. IVP PRN; -ONDANSETRON PF 4 MG/2 ML VIAL. ONE; -PHENYLEPHRINE in 0.9% NACL PF 1 MG/10 ML SYRINGE. IV ONE; -PROCHLORPERAZINE 10 MG/2 ML VIAL. IVP PRN; -PROPOFOL 10 MG/ML (20ML) VIAL. IV ONE; -PROPOFOL 50 ML IV ONE; -REMIFENTANIL 2 MG VIAL. IV ONE; -ROCURONIUM 50 MG/5 ML VIAL. ONE; -VANCOMYCIN 1GM IVPB FOR OMNI 250 ML IV PRN; -ceFAZolin SODIUM 1 GM in IV NORMAL SALINE 1000ML BAG 1,000 ML IRR ONE; -fentaNYL PF VIAL 100 MCG/2 ML VIAL IVP PRN
[2021-04-04] MEDS ORDERED: IV NORMAL SALINE 1000ML BAG 1,000 ML IV ONE (11:00)
[2021-04-04 11:05] LABS: BASO # 0.1 x10^3/uL (0.0-0.2); BASO % 1 % (0-3); EOS # 0.1 x10^3/uL (0.0-0.7); EOS % 1 % (0-3); HEMATOCRIT 29.6 % (36.0-47.0); HEMOGLOBIN 9.8 g/dL (12.0-15.5); LYMPH # 1.3 x10^3/uL (1.0-4.8); LYMPH % 11 % (24-48); MEAN CORPUSCULAR HEMOGLOBIN 27 pg (25-35); MEAN CORPUSCULAR HGB CONC 33 g/dL (31-37); MEAN CORPUSCULAR VOLUME 80 fL (79-100); MONO # 0.7 x10^3/uL (0.0-1.1); MONO % 7 % (0-9); NEUT # 9.4 x10^3/uL (1.8-7.7); NEUT % 81 % (31-73); PLATELET COUNT 419 x10^3/uL (140-400); RED BLOOD COUNT 3.69 x10^6/uL (3.50-5.40); RED CELL DISTRIBUTION WIDTH 14.9 % (11.5-14.5); WHITE BLOOD COUNT 11.6 x10^3/uL (4.0-11.0)
[2021-04-04 11:27] LABS: CALCIUM 9.4 mg/dL (8.5-10.1); CREATININE 0.9 mg/dL (0.6-1.0); POTASSIUM 3.9 mmol/L (3.5-5.1)
--- NOTE | 2021-04-04 11:30 | RAD ---
RIGHT LEG VENOUS DOPPLER STUDY: Clinical indications: Right leg swelling. Findings: Duplex sonography (including nino scale evaluation and color flow and waveform spectral erik lysis) of the proximal aspect of the greater saphenous vein and proximal aspect of the profunda femor al vein and the entire length of the common femoral and superficial femoral and popliteal veins and t he tibioperoneal trunk and the proximal aspect of the posterior tibial and peroneal veins of the righ t leg was performed. Normal compressibility, augmentation of color Doppler flow after calf compressio n, and respiratory variation of Doppler flow is seen. Thus, there are no sonographic findings of deep venous thrombosis within these veins. Impression: There are no sonographic findings of deep venous thrombosis within the veins discussed ab ove of the right lower extremity. LEFT LEG VENOUS DOPPLER STUDY: Clinical indications: Left leg swelling. Findings: Duplex sonography (including nino scale evaluation and color flow and waveform spectral erik lysis) of the proximal aspect of the greater saphenous vein and the proximal aspect of the profunda f emoral vein and the entire length of the common femoral and superficial femoral and popliteal veins a nd the tibioperoneal trunk and the proximal aspect of the posterior tibial and peroneal veins of the left leg was performed. Normal compressibility, augmentation of color Doppler flow after calf dada margot, and respiratory variation of Doppler flow is seen. Thus, there are no sonographic findings of d eep venous thrombosis within these veins. Impression: There are no sonographic findings of deep venous thrombosis within the veins discussed ab ove of the left lower extremity. Electronically signed by: Long Alford MD (04/04/2021 11:28 AM) [id number]
--- NOTE | 2021-04-04 11:31 | RAD ---
Exam Date: 04/04/2021 11:[address] HEAD/BRAIN WO Indication: Reason: AMS / Spl. Instructions: / History: . TECHNIQUE: Head CT was performed without intravenous contrast. One or more of the following dose re duction techniques were utilized: *Automated exposure control (AEC) *Adjustment of mA and/or kV according to patient size *Use of iterative reconstruction technique *CT scan done according to ALARA, or ALARA/IMAGE GENTLY FINDINGS: The ventricles and sulci are prominent consistent with cerebral volume loss. Patchy ill-defined low attenuation areas in the subcortical and periventricular white matter bilaterally are consistent with microvascular disease. There is no evidence of acute intracranial hemorrhage, extra-axial collecti on, mass effect, midline shift, or acute territorial infarct. No lesion of the skull base or the calv arium is seen. The visualized mastoid air cells and orbits are normal in appearance. There is opacif ication of the partially visualized right maxillary sinus. IMPRESSION: No evidence for acute intracranial abnormality. Volume loss and microvascular disease. Electronically signed by: Tobi Salas MD (04/04/2021 11:28 AM) [facility]EL[facility]
[2021-04-04 11:33] LABS: ALBUMIN 3.1 g/dL (3.4-5.0); ALBUMIN/GLOBULIN RATIO 0.8 (1.0-1.7); MAGNESIUM 1.7 mg/dL (1.8-2.4); TOTAL BILIRUBIN 0.5 mg/dL (0.2-1.0); TOTAL PROTEIN 7.1 g/dL (6.4-8.2)
--- NOTE | 2021-04-04 11:44 | RAD ---
EXAM: Chest, single view. HISTORY: Shortness of breath. COMPARISON: None. FINDINGS: A frontal view of the chest is obtained. There is no infiltrate, pleural effusion or pneumo thorax. The heart is normal in size. IMPRESSION: No acute pulmonary finding. Electronically signed by: Berna Rucker MD (04/04/2021 11:42 AM) [id number]
--- NOTE | 2021-04-04 12:06 | PHYS DOC ---
Past Medical History Past Medical History: CHF, DVT, GERD, Hypertension Additional Past Medical Histor: lymphedema; back pain; chronic pain; femoral stents (JOSIAHCHINO BOJORQUEZ ENTERTAINMENT LAWYER) Past Surgical History: Hysterectomy, Tonsillectomy, Other Additional Past Surgical Histo: back; right knee; neck (LENNIECHINO Winter ENTERTAINMENT LAWYER) Smoking Status: Never Smoker Alcohol Use: Rarely Drug Use: None (JOSIAHCHINO BOJORQUEZ ENTERTAINMENT LAWYER) General Adult EDM: Chief Complaint: ALTERED MENTAL STATUS HPI: HPI: Patient is a 76 year old female with history of hypertension, lymphedema who presents to the ED today to be evaluated after family was unable to get a hold of her by phone this morning. Patient's daughter who works in the hospital as a APPARATUS OPERATOR states patient had Hemilaminotomy, with microdiscectomy 2 weeks ago. She lives home by herself. They tried to call back today and she missed 2 phone calls. They were concerned and another family member went to check on her. The family member noted patient was not very oriented. They called 911 to bring patient to the ED. Patient arrives in the ED alert oriented x4 answering questions very well. She is complaining of mild low back pain but states this has been present since her surgery. She is also complaining of lower extremity swelling. She states she has lymphedema to the lower extremities but states the swelling is worse. Patient denies any injuries. She states she is not on any pain medicines right now. She states she stopped taking her oxycodone 3 days ago. (CHINO SNELL ENTERTAINMENT LAWYER) Review of Systems: Review of Systems: Constitutional: Denies fever or chills. [] Eyes: Denies change in visual acuity. [] HENT: Denies nasal congestion or sore throat. [] Respiratory: Denies cough or shortness of breath. [] Cardiovascular: Denies chest pain or edema. [] GI: Denies abdominal pain, nausea, vomiting, bloody stools or diarrhea. [] : Denies dysuria. [] Musculoskeletal: Reports low back pain, reports lower extremity swelling Integument: Denies rash. [] Neurologic: Denies headache, focal weakness or sensory changes. [] Psychiatric: Denies depression or anxiety. [] (CHINO SNELL ENTERTAINMENT LAWYER) Heart Score: C/O Chest Pain: N/A Risk Factors: Risk Factors: DM, Current or recent (<one month) smoker, HTN, HLP, family history of CAD, obesity. Risk Scores: Score 0 - 3: 2.5% MACE over next 6 weeks - Discharge Home Score 4 - 6: 20.3% MACE over next 6 weeks - Admit for Clinical Observation Score 7 - 10: 72.7% MACE over next 6 weeks - Early Invasive Strategies (ALISCHINO M ENTERTAINMENT LAWYER) Current Medications: Current Medications Medications (Trade) Dose Ordered Sig/Jeovany Start Time Stop Time Status Last Admin Dose Admin Sodium Chloride 1,000 ml @ 1,000 mls/hr 1X ONCE 04/04/21 11:00 04/04/21 11:59 04/04/21 11:23 1,000 MLS/HR (ALISCHINO M ENTERTAINMENT LAWYER) Allergies: Allergies: Allergies Coded Allergies Type Severity Reaction Last Updated Verified Penicillins Allergy Intermediate Swelling 03/22/21 Yes Tetanus Vaccines and Toxoid Allergy Intermediate Swelling 03/22/21 Yes (ALISCHINO M ENTERTAINMENT LAWYER) Physical Exam: PE: Constitutional: Well developed, well nourished, no acute distress, non-toxic appearance. [] HENT: Normocephalic, atraumatic, bilateral external ears normal, oropharynx moist, no oral exudates, nose normal. [] Eyes: PERRLA, EOMI, conjunctiva normal, no discharge. [] Neck: Normal range of motion, no tenderness, supple, no stridor. [] Cardiovascular:Heart rate regular rhythm, no murmur [] Lungs & Thorax: Bilateral breath sounds clear to auscultation [] Abdomen: Bowel sounds normal, soft, no tenderness, no masses, no pulsatile masses. [] Skin: Warm, dry, no erythema, no rash. [] Back: Lower back with a well approximated incision site, no signs of infection, no tenderness, no CVA tenderness. [] Extremities: No tenderness, no cyanosis, no clubbing, ROM intact, lymphedema noted to bilateral lower extremities worse on the left, +2 bilateral pedal pulses. Neurologic: Alert and oriented X 4, normal motor function, normal sensory function, no focal deficits noted. [] Psychologic: Affect normal, judgement normal, mood normal. [] (LENNIEACHINO M ENTERTAINMENT LAWYER) Current Patient Data: Labs: Laboratory Tests Test 04/04/21 10:50 04/04/21 11:00 White Blood Count 11.6 x10^3/uL (4.0-11.0) H Red Blood Count 3.69 x10^6/uL (3.50-5.40) Hemoglobin 9.8 g/dL (12.0-15.5) L Hematocrit 29.6 % (36.0-47.0) L Mean Corpuscular Volume 80 fL (79-100) Mean Corpuscular Hemoglobin 27 pg (25-35) Mean Corpuscular Hemoglobin Concent 33 g/dL (31-37) Red Cell Distribution Width 14.9 % (11.5-14.5) H Platelet Count 419 x10^3/uL (140-400) H Neutrophils (%) (Auto) 81 % (31-73) H Lymphocytes (%) (Auto) 11 % (24-48) L Monocytes (%) (Auto) 7 % (0-9) Eosinophils (%) (Auto) 1 % (0-3) Basophils (%) (Auto) 1 % (0-3) Neutrophils # (Auto) 9.4 x10^3/uL (1.8-7.7) H Lymphocytes # (Auto) 1.3 x10^3/uL (1.0-4.8) Monocytes # (Auto) 0.7 x10^3/uL (0.0-1.1) Eosinophils # (Auto) 0.1 x10^3/uL (0.0-0.7) Basophils # (Auto) 0.1 x10^3/uL (0.0-0.2) Sodium Level 131 mmol/L (136-145) L Potassium Level 3.9 mmol/L (3.5-5.1) Chloride Level 94 mmol/L (98-107) L Carbon Dioxide Level 29 mmol/L (21-32) Anion Gap 8 (6-14) Blood Urea Nitrogen 14 mg/dL (7-20) Creatinine 0.9 mg/dL (0.6-1.0) Estimated GFR (Cockcroft-Gault) 61.0 BUN/Creatinine Ratio 16 (6-20) Glucose Level 107 mg/dL (70-99) H Calcium Level 9.4 mg/dL (8.5-10.1) Magnesium Level 1.7 mg/dL (1.8-2.4) L Total Bilirubin 0.5 mg/dL (0.2-1.0) Aspartate Amino Transferase (AST) 15 U/L (15-37) Alanine Aminotransferase (ALT) 21 U/L (14-59) Alkaline Phosphatase 87 U/L (46-116) Troponin I Quantitative < 0.017 ng/mL (0.000-0.055) XH-Rmq-X-Type Natriuretic Peptide 95 pg/mL (0-449) Total Protein 7.1 g/dL (6.4-8.2) Albumin 3.1 g/dL (3.4-5.0) L Albumin/Globulin Ratio 0.8 (1.0-1.7) L Lactic Acid Level 0.7 mmol/L (0.4-2.0) Laboratory Tests 04/04/21 10:50 Laboratory Tests 04/04/21 10:50 Vital Signs: Vital Signs Date Time Temp Pulse Resp B/P (MAP) Pulse Ox O2 Delivery O2 Flow Rate FiO2 04/04/21 10:30 98.2 80 20 206/89 (76) 99 Room Air 98.2 (CHINO SNELL APRN) EKG: EK interpreted by Dr. Johnson sinus rhythm heart rate 68 no STEMI (CHINO SNELL APRN) Radiology/Procedures: Radiology/Procedures: []PROCEDURE: VENOUS LOWER EXT BILATERAL RIGHT LEG VENOUS DOPPLER STUDY: Clinical indications: Right leg swelling. Findings: Duplex sonography (including nino scale evaluation and color flow and waveform spectral analysis) of the proximal aspect of the greater saphenous vein and proximal aspect of the profunda femoral vein and the entire length of the common femoral and superficial femoral and popliteal veins and the tibioperoneal trunk and the proximal aspect of the posterior tibial and peroneal veins of the right leg was performed. Normal compressibility, augmentation of color Doppler flow after calf compression, and respiratory variation of Doppler flow is seen. Thus, there are no sonographic findings of deep venous thrombosis within these veins. Impression: There are no sonographic findings of deep venous thrombosis within the veins discussed above of the right lower extremity. LEFT LEG VENOUS DOPPLER STUDY: Clinical indications: Left leg swelling. Findings: Duplex sonography (including nino scale evaluation and color flow and waveform spectral analysis) of the proximal aspect of the greater saphenous vein and the proximal aspect of the profunda femoral vein and the entire length of the common femoral and superficial femoral and popliteal veins and the tibiopero vilma trunk and the proximal aspect of the posterior tibial and peroneal veins of the left leg was performed. Normal compressibility, augmentation of color Doppler flow after calf compression, and respiratory variation of Doppler flow is seen. Thus, there are no sonographic findings of deep venous thrombosis within these veins. Impression: There are no sonographic findings of deep venous thrombosis within the veins discussed above of the left lower extremity. Electronically signed by: Mary Ann Alford MD (04/04/2021 11:28 AM) [id number] DICTATED and SIGNED BY: MARY ANN ALFORD MD DATE: 04/04/21 [id number] PROCEDURE: CT HEAD WO CONTRAST Exam Date: 04/04/2021 11:[address] HEAD/BRAIN WO Indication: Reason: AMS / Spl. Instructions: / History: . TECHNIQUE: Head CT was performed without intravenous contrast. One or more of the following dose reduction techniques were utilized: *Automated exposure control (AEC) *Adjustment of mA and/or kV according to patient size *Use of iterative reconstruction technique *CT scan done according to ALARA, or ALARA/IMAGE GENTLY FINDINGS: The ventricles and sulci are prominent consistent with cerebral volume loss. Patchy ill-defined low attenuation areas in the subcortical and periventricular white matter bilaterally are consistent with microvascular disease. There is no evidence of acute intracranial hemorrhage, extra-axial collection, mass effect, midline shift, or acute territorial infarct. No lesion of the skull base or the calvarium is seen. The visualized mastoid air cells and orbits are normal in appearance. There is opacification of the partially visualized right maxillary sinus. IMPRESSION: No evidence for acute intracranial abnormality. Volume loss and microvascular disease. Electronically signed by: Phong Salas MD (04/04/2021 11:28 AM) [facility] DICTATED and SIGNED BY: PHONG SALAS MD DATE: 04/04/21 [id number] PROCEDURE: PORTABLE CHEST 1V EXAM: Chest, single view. HISTORY: Shortness of breath. COMPARISON: None. FINDINGS: A frontal view of the chest is obtained. There is no infiltrate, pleural effusion or pneumothorax. The heart is normal in size. IMPRESSION: No acute pulmonary finding. Electronically signed by: Tyler Bernabe MD (04/04/2021 11:42 AM) [id number] DICTATED and SIGNED BY: TYLER BERNABE MD DATE: 04/04/21 [id number] (CHINO SNELL APRN) Course & Med Decision Making: Course & Med Decision Making Pertinent Labs and Imaging studies reviewed. (See chart for details) This is a 76-year-old female patient who presents to the ED today to be evaluated after family was concerned she missed 2 phone calls this morning. He states she was also not as oriented when a family member went to see her. Patient arrives in the ED alert oriented x4, she is answering all questions appropriately. She states she could not be sleepy this morning. She had lumbar discectomy 2 weeks ago. Her incision is well approximated and healing very well. She is also complaining of bilateral lower extremity swelling, she has history of chronic lymphedema. CT of the head is negative, EKG is negative, chest x-ray is negative. Venous Dopplers of bilateral lower extremities are negative. Chest x-ray is negative. CBC with a WBC of 11.6, CMP with sodium of 131, patient was given IV fluids in the ED. Hemoglobin 9.8 with hematocrit of 29.6. History of anemia UA negative for infection. Discharged home, follow-up with her own PCP and neurosurgeon (CHINO SNELL APRN) Aminah Disclaimer: Aminah Disclaimer: This electronic medical record was generated, in whole or in part, using a voice recognition dictation system. (CHINO SNELL APRN) Departure Departure Impression: Primary Impression: Low back pain Qualified Codes: M54.5 - Low back pain Additional Impression: Altered mental status Qualified Codes: R41.82 - Altered mental status, unspecified Disposition: HOME / SELF CARE / HOMELESS Condition: STABLE Referrals: MARIAN LAUGHLIN MD (PCP) Follow-up with your primary care doctor next week HAZEL WESTFALL MD follow up next week Patient Instructions: Altered Mental Status, Back Pain, Adult, [id number] Additional Instructions: You were evaluated in the emergency room. Your work-up was negative for any acute findings. We encourage you to push fluids. We encourage you to follow-up with your primary care doctor as well as neurosurgeon. Please come back to the ED at any point symptoms worsen. Attending Signature I have participated in the care of this patient and I have reviewed and agree with all pertinent clinical information above including history, exam, and recommendations. (CHRISTINA JOHNSON DO) CHINO SNELL ENTERTAINMENT LAWYER Apr 04, 2021 12:06 CHRISTINA JOHNSON DO Apr 09, 2021 05:56
[2021-04-04] MEDS ORDERED: MORPHINE SULFATE 4 MG/ML INJ. IVP ONE (13:15)
--- NOTE | 2021-04-04 13:28 | EKG ---
[facility] [address] [place] [address] Test Date: 2021-04-04 Test Time: 10:57:08 Pat Name: SUZANNE HARKINS Department: Room: Gender: F [employer] Turbine Design Engineer: : [id number] Requested By: CHINO SNELL Order Number: [id number] Reading MD: Measurements Intervals [place] Rate: 68 P: 41 AK: 176 QRS: 19 QRSD: 86 T: 35 QT: 374 QTc: 398 Interpretive Statements SINUS RHYTHM NORMAL ECG RI6.02 No previous ECG available for comparison
[2021-04-04 14:59] LABS: BILIRUBIN,URINE NEGATIVE (NEG); CLARITY,URINE CLEAR; COLOR,URINE YELLOW; NITRITE,URINE NEGATIVE (NEG); PH,URINE 7.5 (<5.0-8.0); PROTEIN,URINE NEGATIVE (NEG-TRACE); UROBILINOGEN,URINE 0.2 mg/dL (0.2 mg/dL)
[2021-04-04 15:07] LABS: BARBITURATES NEG (NEG); BENZODIAZEPINES NEG (NEG); CANNABINOIDS NEG (NEG); COCAINE NEG (NEG); METHADONE NEG (NEG); OPIATES POS (NEG); PHENCYCLIDINE NEG (NEG)
[2021-04-04 15:08] LABS: AMPHETAMINE/METHAMPHETAMINE NEG (NEG)
[2021-04-04 15:11] LABS: BACTERIA,URINE 0 /HPF (0-FEW); RBC,URINE 0 /HPF (0-2)
[2021-04-04 15:50] VITALS: BP 134/61
== END 2021-04-04 16:20 | disposition home or self-care (01) ==
LOC: ER 10:24
DX: M54.5 Low back pain (principal); R41.82 Altered mental status, unspecified; R60.0 Localized edema; I11.0 Hypertensive heart disease with heart failure; I50.9 Heart failure, unspecified; K21.9 Gastro-esophageal reflux disease without esophagitis; G89.29 Other chronic pain; Z86.718 Personal history of other venous thrombosis and embolism; Z88.0 Allergy status to penicillin; Z88.7 Allergy status to serum and vaccine
CPT/HCPCS: 36415; 70450; 71045; 80053; 80307; 81001; 83605; 83735; 83880; 84145; 84443; 84484; 85025; 87040; 87086; 93005; 93970; 96361; 96374; 99285; J2270; J7030